=== PATIENT | female | born 1970 | race Caucasian/White ===

== ENCOUNTER 2016-05-30 12:28 | Observation (INO) | payer MEDICARE, OTHER ==
[2016-05-30] MEDS ORDERED: Sodium Chloride 0.9% 1000 ML 1,000 ML ONE (13:14)
[2016-05-30] MEDS ORDERED: Sodium Chloride 0.9% 1000 ML 1,000 ML IV SCH (13:15)
[2016-05-30 13:33] LABS: BASOPHIL % 0.3 % (0.0-0.4); Eosinophil % 2.8 % (0.00-5.0); Granulocytes % 49.7 % (36.0-66.0); Lymphocytes % 40.5 % (24.0-44.0); Mean Cell Volume 88.8 fl (78-100); Mean Platelet Volume 10.3 fl (6-9.5); Monocytes % 6.7 % (0.0-12.0); Platelet Count 298 K/mm3 (150-450); Red Cell Distribution Width 14.5 % (11.5-14.0); White Blood Count 11.8 K/mm3 (4.0-10.5)
[2016-05-30 13:53] LABS: ANION GAP 14.8 MEQ/L (5-15); BLOOD UREA NITROGEN 10 mg/dL (9-20); CHLORIDE 112 mEq/L (98-107); Carbon Dioxide 22.4 mEq/L (21-32); Glucose 134 MG/DL (70-110); SODIUM 147 mEq/L (136-145)
[2016-05-30 13:55] LABS: Potassium 2.1 mEq/L (3.5-5.1)
[2016-05-30] MEDS ORDERED: POTASSIUM CHLORIDE 20 mEq IN WATER 100ML 100 ML IV ONE ×3 (13:55→22:18)
--- NOTE | 2016-05-30 14:06 | ERPHSYRPT ---
- History of Present Illness Time Seen by Provider: 05/30/16 12:50 Source: patient Exam Limitations: clinical condition Patient Subjective Stated Complaint: "[facility] because my potassium is 2.6" Triage Nursing Assessment: aox3, breathign easy unlabored, skin pink warm dry, steady gait Physician History: PATIENT WITH A HISTORY OF HYPERTENSION, REFERRED TO EMERGENCY FOR EVALUATION OF LOW POTASSIUM FROM CLINIC. PATIENT COMPLAINS OF LEFT NUMBNESS ON OCCASION, DENIES EMESIS OR DIARRHEA. Timing/Duration: yesterday Modifying Factors: Improves With: other (DENIES COMPLAINS OTHER THAN NUMBNESS) Associated Symptoms: weakness Allergies/Adverse Reactions: venom-honey bee [bee venom (honey bee)] Allergy (Severe, Verified 10/10/15 13:01 ) Difficulty Breathing Iodinated Contrast Media - Oral and [Iodinated Contrast Media - IV Dye] Allergy (Intermediate, Verified 10/10/15 10:36) Itching cocoa butter Allergy (Verified 10/10/15 13:01) Hives codeine [Codeine] Allergy (Verified 12/14/11 23:14) iodine Allergy (Verified 12/14/11 23:14) sumatriptan [From Imitrex] Allergy (Verified 12/14/11 23:14) sumatriptan succinate [From Imitrex] Allergy (Verified 12/14/11 23:14) hydrochlorothiazide Adverse Reaction (Verified 10/10/15 13:01) tramadol Adverse Reaction (Verified 10/10/15 13:01) Vomiting Home Medications: Cyclobenzaprine HCl 10 mg [Cyclobenzaprine 10 MG] 10 mg PO HSPRN PRN 10/09 [History] Loratadine 10 mg [Claritin 10 mg] 10 mg PO DAILY 10/10/15 [History] Metoprolol Succinate 25 mg Xl* [Toprol-Xl 25MG Tablets] 25 mg PO BID [History] Naproxen [Naprosyn] 500 mg PO BID PRN 10/10/15 [History] Oxybutynin Chloride [Oxybutynin Chloride ER] 10 mg PO DAILY 10/10/15 [History] Simvastatin 0.5 tab PO HS 10/10/15 [History] Topiramate 100 mg [Topamax 100 MG] 50 mg PO BID 10/10/15 [History] Famotidine [Pepcid] 40 mg PO DAILY 05/30/16 [History] Potassium Chloride [Potassium Chloride 20MEQ/15ML] 40 meq PO DAILY 05/30/16 [ History] Pregabalin 25 mg [Lyrica 25 MG] 25 mg PO BID 05/30/16 [History] Hx Tetanus, Diphtheria Vaccination/Date Given: Yes Hx Influenza Vaccination/Date Given: No Hx Pneumococcal Vaccination/Date Given: No - Review of Systems Constitutional: Weakness, No Fever, No Chills Eyes: No Symptoms Ears, Nose, & Throat: No Symptoms Respiratory: No Symptoms, No Cough, No Dyspnea Cardiac: No Symptoms, No Chest Pain, No Edema, No Syncope Abdominal/Gastrointestinal: No Symptoms, No Abdominal Pain, No Nausea, No Vomiting, No Diarrhea Genitourinary Symptoms: No Symptoms, No Dysuria Musculoskeletal: No Symptoms, No Back Pain, No Neck Pain Skin: No Symptoms, No Rash Neurological: Parasthesia (IN LEGS), No Dizziness, No Focal Weakness, No Sensory Changes Psychological: No Symptoms Endocrine: No Symptoms Hematologic/Lymphatic: No Symptoms All Other Systems: Reviewed and Negative - Past Medical History Pertinent Past Medical History: Yes Neurological History: Migraines ENT History: No Pertinent History Cardiac History: Hypertension Respiratory History: No Pertinent History Endocrine Medical History: No Pertinent History Musculoskeletal History: No Pertinent History GI Medical History: No Pertinent History History: No Pertinent History Psycho-Social History: Anxiety, Depression Female Reproductive Disorders: No Pertinent History - Past Surgical History Past Surgical History: Yes Neuro Surgical History: No Pertinent History Cardiac: No Pertinent History Respiratory: No Pertinent History Gastrointestinal: Appendectomy Genitourinary: No Pertinent History Musculoskeletal: No Pertinent History Female Surgical History: Hysterectomy - Social History Smoking Status: Current every day smoker How long have you smoked: 30 YEARS Exposure to second hand smoke: Yes Drug Use: none Patient Lives Alone: No - Female History Hx Now: No - Nursing Vital Signs Nursing Vital Signs: Initial Vital Signs Temperature 98.0 F Temperature Source Oral Pulse Rate 73 Respiratory Rate 22 Blood Pressure [Right Arm] 156/102 Pain Intensity 4 - Physical Exam General Appearance: no apparent distress, alert Eye Exam: PERRL/EOMI, eyes nml inspection Ears, Nose, Throat Exam: normal ENT inspection, TMs normal, pharynx normal, moist mucous membranes Neck Exam: normal inspection, non-tender, supple, full range of motion Respiratory Exam: normal breath sounds, lungs clear, No respiratory distress Cardiovascular Exam: regular rate/rhythm, normal heart sounds, normal peripheral pulses Gastrointestinal/Abdomen Exam: soft, normal bowel sounds, No tenderness, No mass Back Exam: normal inspection, normal range of motion, No CVA tenderness, No vertebral tenderness Extremity Exam: normal inspection, normal range of motion, pelvis stable Neurologic Exam: alert, oriented x 3, cooperative, normal mood/affect, nml cerebellar function, nml station & gait, sensation nml, No motor deficits Skin Exam: normal color, warm, dry, No rash Lymphatic Exam: No adenopathy SpO2 Interpretation: normal SpO2: 97 Oxygen Delivery: Room Air - Course EKG Interpreted by Me: RATE, Sinus Rhythm, NORMAL AXIS, Other (RATE 73 ANTERIOR LATERAL FLAT T-WAVES) Ordered Tests: Active Orders 24 hr Category Date Time Status EKG-ER Only STAT Care 05/30/16 14:07 Active BMP Stat Lab 05/30/16 13:24 Completed CBC W DIFF Stat Lab 05/30/16 13:24 Completed MAGNESIUM Stat Lab 05/30/16 13:24 Completed Transfer Order Routine Transfer 05/30/16 14:31 Ordered Medication Summary Generic Name Dose Route Start Last Admin Trade Name Freq PRN Reason Stop Dose Admin Sodium Chloride 1,000 mls @ 50 mls/hr 05/30/16 13:15 05/30/16 13:14 Sodium Chloride 0.9% 1000 Ml IV 06/29/16 13:14 50 mls/hr .Q20H DAWOOD Administration Potassium Chloride 100 mls @ 50 mls/hr 05/30/16 13:55 05/30/16 14:10 Potassium Chloride 20 Meq In Water 100ml IV 05/30/16 15:54 50 mls/hr STAT ONE Administration Potassium Chloride 40 meq 05/31/16 14:17 05/30/16 14:25 Potassium Chl 40 Meq/30 Ml Oral Solution PO 05/31/16 14:18 40 meq STAT ONE Administration Discontinued Medications Generic Name Dose Route Start Last Admin Trade Name Freq PRN Reason Stop Dose Admin Sodium Chloride Confirm 05/30/16 13:14 Sodium Chloride 0.9% 1000 Ml Administered 05/30/16 13:15 Dose 1,000 mls @ ud .ROUTE .STK-MED ONE Potassium Chloride Confirm 05/30/16 14:07 Potassium Chloride 20 Meq In Water 100ml Administered 05/30/16 14:08 Dose 100 mls @ ud IV .STK-MED ONE Potassium Chloride 40 meq 05/31/16 10:00 Potassium Chl 40 Meq/30 Ml Oral Solution PO 06/30/16 09:59 DAILY DAWOOD Potassium Chloride Confirm 05/30/16 14:07 Potassium Chl 40 Meq/30 Ml Oral Solution Administered 05/30/16 14:08 Dose 40 meq .ROUTE .STK-MED ONE Lab/Rad Data: Laboratory Result Diagrams 05/30/16 13:24 05/30/16 13:24 Laboratory Results 05/30/16 05/30/16 05/30/16 Range/Units 13:24 13:24 13:24 WBC 11.8 H (4.0-10.5) K/mm3 RBC 4.90 (4.1-5.4) M/mm3 Hgb 14.7 (12.0-16.0) gm/dl Hct 43.5 (35-47) % MCV 88.8 (78-100) fl MCH 30.0 (26-32) pg MCHC 33.8 (32-36) g/dl RDW 14.5 H (11.5-14.0) % Plt Count 298 (150-450) K/mm3 MPV 10.3 H (6-9.5) fl Gran % 49.7 (36.0-66.0) % Lymphocytes % 40.5 (24.0-44.0) % Monocytes % 6.7 (0.0-12.0) % Eosinophils % 2.8 (0.00-5.0) % Basophils % 0.3 (0.0-0.4) % Basophils # 0.03 (0-0.4) Sodium 147 H (136-145) mEq/L Potassium 2.1 L* (3.5-5.1) mEq/L Chloride 112 H (98-107) mEq/L Carbon Dioxide 22.4 (21-32) mEq/L Anion Gap 14.8 (5-15) MEQ/L BUN 10 (9-20) mg/dL Creatinine 0.86 (0.55-1.30) mg/dl Estimated GFR > 60 ML/MIN Glucose 134 H (70-110) MG/DL Calcium 8.5 (8.5-10.1) mg/dL Magnesium 2.0 (1.8-2.4) mg/dL - Progress Discussed with : Femi Will see patient in: hospital (full admit) (DISCUSSED WITH DR RAMSEY AT 1430 FOR ADMISSION) - Departure Time of Disposition: 14:35 Departure Disposition: In-patient Admission Clinical Impression: HYPOKALEMIA Condition: Stable Critical Care Time: No Referrals: ROBERTO BAKER MD [Primary Care Provider] -
[2016-05-30] MEDS ORDERED: POTASSIUM CHL 40 MEQ/30 ML ORAL SOLUTION ONE (14:07)
[2016-05-30] MEDS ORDERED: Zofran 4 MG/2 ML VIAL IV PRN (15:26)
[2016-05-30] MEDS ORDERED: TYLENOL 325 MG PO PRN (15:26)
--- NOTE | 2016-05-30 17:35 | PCM.HP ---
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 she was sent to ER due to low potassium from [facility], she denies chest pain, palpitations or paresthesias. She has not had any vomiting or diarrhea etc. - Review of Systems Constitutional: No Symptoms Eyes: No Symptoms Respiratory: No Cough, No Short Of Breath Cardiac: No Chest Pain, No Edema, No Syncope Abdominal/Gastrointestinal: No Abdominal Pain, No Nausea, No Vomiting, No Diarrhea Neurological: No Dizziness, No Focal Weakness, No Sensory Changes Medications & Allergies Home Medications: Home Medication List Cyclobenzaprine HCl 10 mg [Cyclobenzaprine 10 MG] 10 mg PO HSPRN PRN 10/09 [History Confirmed 05/30/16] Loratadine 10 mg [Claritin 10 mg] 10 mg PO DAILY 10/10/15 [History Confirmed 05/30/16] Metoprolol Succinate 25 mg Xl* [Toprol-Xl 25MG Tablets] 25 mg PO BID [History Confirmed 05/30/16] Naproxen [Naprosyn] 500 mg PO BID PRN 10/10/15 [History Confirmed 05/30/16] Oxybutynin Chloride [Oxybutynin Chloride ER] 10 mg PO DAILY 10/10/15 [History Confirmed 05/30/16] Simvastatin 0.5 tab PO HS 10/10/15 [History Confirmed 05/30/16] Topiramate 100 mg [Topamax 100 MG] 50 mg PO DAILY 10/10/15 [History Confirmed 05/30/16] Amiloride HCl [Midamor] 5 mg PO BID #60 tablet 10/12/15 [Rx Confirmed 05/30/16] Famotidine [Pepcid] 40 mg PO DAILY 05/30/16 [History Confirmed 05/30/16] Potassium Chloride [Potassium Chloride 20MEQ/15ML] 40 meq PO DAILY 05/30/16 [ History Confirmed 05/30/16] Pregabalin 25 mg [Lyrica 25 MG] 25 mg PO BID 05/30/16 [History Confirmed 05/30/16] Topiramate 100 mg [Topamax 100 MG] 100 mg PO HS 05/30/16 [History Confirmed 05/30/16] Allergies/Adverse Reactions: Allergies Allergy/AdvReac Type Severity Reaction Status Date / Time venom-honey bee Allergy Severe Difficulty Verified 10/10/15 13:01 [bee venom (honey bee)] Breathing Iodinated Contrast Media - Allergy Intermediate Itching Verified 10/10/15 10:36 Oral and [Iodinated Contrast Media - IV Dye] cocoa butter Allergy Hives Verified 10/10/15 13:01 iodine Allergy Difficulty Verified 05/30/16 15:34 Breathing sumatriptan [From Imitrex] Allergy Difficulty Verified 05/30/16 15:34 Breathing sumatriptan succinate Allergy Difficulty Verified 05/30/16 15:34 [From Imitrex] Breathing codeine [Codeine] AdvReac Vomiting Verified 05/30/16 15:34 hydrochlorothiazide AdvReac Blisters Verified 05/30/16 15:34 tramadol AdvReac Vomiting Verified 10/10/15 13:01 - Past Medical History Past Medical History: Yes Neurological History: Migraines ENT History: No Pertinent History Cardiac History: Hypertension Respiratory History: No Pertinent History Endocrine Medical History: No Pertinent History Musculoskelatal History: No Pertinent History GI Medical History: No Pertinent History History: No Pertinent History Pyscho-Social History: Anxiety, Depression Reproductive Disorders: No Pertinent History - Female History Are you now?: No - Past Surgical History Past Surgical History: Yes Neuro Surgical History: No Pertinent History Cardiac History: No Pertinent History Respiratory Surgery: No Pertinent History GI Surgical History: Appendectomy Genitourinary Surgical Hx: No Pertinent History Musculskeletal Surgical Hx: No Pertinent History Female Surgical History: Hysterectomy - Social History Smoking Status: Current every day smoker How long have you smoked: 30 years Exposure to second hand smoke: Yes Alcohol: None, Rarely Drug Use: none - Physical Exam Vital Signs: Vital Signs - 24 hr Temp Pulse Resp BP Pulse Ox 05/30/16 15:35 97.7 F 71 19 183/103 98 05/30/16 15:01 72 18 179/115 98 05/30/16 14:39 97 05/30/16 13:53 73 22 156/102 97 05/30/16 13:24 71 22 164/88 97 05/30/16 12:37 98.0 F 82 16 170/104 98 General Appearance: no apparent distress, alert Neurologic Exam: alert, oriented x 3, cooperative, normal mood/affect, nml cerebellar function, nml station & gait, sensation nml, No motor deficits Eye Exam: PERRL/EOMI, eyes nml inspection Respiratory Exam: normal breath sounds, lungs clear, No respiratory distress Cardiovascular Exam: regular rate/rhythm, normal heart sounds, normal peripheral pulses Gastrointestinal/Abdomen Exam: soft, normal bowel sounds, No tenderness, No mass Extremity Exam: normal inspection Skin Exam: normal color, warm, dry, No rash Assessment/Plan (1) Hypokalemia Current Visit: Yes Status: Acute Assessment & Plan: will replace, continue amiloride Code(s): E87.6 - HYPOKALEMIA (2) Pee's syndrome Current Visit: Yes Status: Acute Code(s): I15.2 - HYPERTENSION SECONDARY TO ENDOCRINE DISORDERS; E26.89 - OTHER HYPERALDOSTERONISM
[2016-05-30] MEDS: POTASSIUM CHLORIDE 20 mEq IN WATER 100ML 100 ML IV SCH ×2 (17:38→22:22)
[2016-05-30] MEDS ORDERED: Cyclobenzaprine 10 MG PO PRN (18:52)
[2016-05-30] MEDS: Lyrica 25 MG PO SCH (21:53)
[2016-05-30] MEDS: Toprol-Xl 25MG Tablets PO SCH (21:54)
[2016-05-30] MEDS ORDERED: Naprosyn 500 MG PO SCH (22:00)
[2016-05-30] MEDS ORDERED: Topamax 100 MG PO SCH (22:00)
[2016-05-30] MEDS: MIDAMOR PO SCH (22:52)
[2016-05-31] MEDS: POTASSIUM CHLORIDE 20 mEq IN WATER 100ML 100 ML IV SCH ×2 (04:44→08:22)
[2016-05-31] MEDS ORDERED: Naprosyn 500 MG PO PRN (08:20)
[2016-05-31] MEDS: MIDAMOR PO SCH (08:26)
[2016-05-31] MEDS: Lyrica 25 MG PO SCH (08:26)
[2016-05-31] MEDS: Toprol-Xl 25MG Tablets PO SCH (08:26)
[2016-05-31] MEDS: Sodium Chloride 0.9% 1000 ML 1,000 ML IV SCH ×2 (09:05→09:06)
[2016-05-31] MEDS ORDERED: NON-FORMULARY ITEM (Oxybutynin Chloride [Oxybutynin Chloride Er] 10 MG) PO SCH (10:00)
[2016-05-31] MEDS ORDERED: Ditropan XL 5 MG PO SCH (10:00)
[2016-05-31] MEDS ORDERED: Topamax 100 MG PO SCH (10:00)
[2016-05-31] MEDS ORDERED: POTASSIUM CHL 40 MEQ/30 ML ORAL SOLUTION PO SCH (10:00)
[2016-05-31] MEDS ORDERED: Pepcid 20 MG PO SCH (10:00)
[2016-05-31] MEDS ORDERED: K-LYTE 25 MEQ PO ONE (11:30)
--- NOTE | 2016-05-31 11:33 | PCM.DS ---
Discharge Summary Date of Admission: 05/30/16 15:20 Admitting Physician: RAMON RAMSEY Primary Care Provider: ROBERTO BAKER Allergies Allergies venom-honey bee [bee venom (honey bee)] Allergy (Severe, Verified 10/10/15 13:01 ) Difficulty Breathing Iodinated Contrast Media - Oral and [Iodinated Contrast Media - IV Dye] Allergy (Intermediate, Verified 10/10/15 10:36) Itching cocoa butter Allergy (Verified 10/10/15 13:01) Hives iodine Allergy (Verified 05/30/16 15:34) Difficulty Breathing sumatriptan [From Imitrex] Allergy (Verified 05/30/16 15:34) Difficulty Breathing sumatriptan succinate [From Imitrex] Allergy (Verified 05/30/16 15:34) Difficulty Breathing codeine [Codeine] Adverse Reaction (Verified 05/30/16 15:34) Vomiting hydrochlorothiazide Adverse Reaction (Verified 05/30/16 15:34) Blisters tramadol Adverse Reaction (Verified 10/10/15 13:01) Vomiting Hospital Summary - Hospital Course Hospital Course: [facility] with [facility]al[facility], hx of Pee syndrome ( pseudohypoaldosteronism) had her potassium decreased from 40meq to 20meq daily in [place] by her endo. overall doing well and feels fine. potassium has been replaced. - Vitals & Intake/Output Vital Signs: Vital Signs Temperature 97.6 F 05/31/16 07:33 Pulse Rate 86 05/31/16 07:33 Respiratory Rate 18 05/31/16 08:00 Blood Pressure 150/91 05/31/16 07:33 O2 Sat by Pulse Oximetry 96 05/31/16 07:33 Intake & Output: Intake & Output 05/28/16 05/29/16 05/30/16 05/31/16 11:59 11:59 11:59 11:59 Intake Total 1557 Balance 1557 Weight 92.986 kg - Lab Result Diagrams: 05/30/16 13:24 05/31/16 04:00 Lab Results-Last 24 Hrs: Lab Results-Last 24 Hours 05/31/16 Range/Units 04:00 Potassium 2.8 L* (3.5-5.1) mEq/L - Procedures and Test Procedures and Tests throughout Hospitalization: Therapy Orders & Screens 05/30/16 15:54 Smoking Cessation Education ONCE Comment: Diagnosis: hypokalemia Smoking Status: Current every day smoker How long have you smoked: 30 years Have you smoked in the past 12 months: Yes Approximately how many cigarettes per day: 1.5 packs Do you dip or chew tobacco: No Discharge Exam General Appearance: no apparent distress, alert Respiratory Exam: normal breath sounds, lungs clear, No respiratory distress Cardiovascular Exam: regular rate/rhythm, normal heart sounds Gastrointestinal/Abdomen Exam: soft, No tenderness, No mass Extremity Exam: normal inspection, normal range of motion Final Diagnosis/Problem List - Final Discharge Diagnosis/Problem (1) Hypokalemia Current Visit: Yes Status: Acute Assessment & Plan: replaced, want to be around 3.5 then will discharge and increase back to 40meq daily (2) Pee's syndrome Current Visit: Yes Status: Acute Assessment & Plan: f/u with endo - Discharge Disposition: Home, Self-Care Condition: Stable Prescriptions: No Action Oxybutynin Chloride [Oxybutynin Chloride ER] 10 mg PO DAILY Simvastatin 0.5 tab PO HS Loratadine 10 mg [Claritin 10 mg] 10 mg PO DAILY Metoprolol Succinate 25 mg Xl* [Toprol-Xl 25MG Tablets] 25 mg PO BID Naproxen [Naprosyn] 500 mg PO BID PRN PRN Reason: Pain Topiramate 100 mg [Topamax 100 MG] 50 mg PO DAILY Cyclobenzaprine HCl 10 mg [Cyclobenzaprine 10 MG] 10 mg PO HSPRN PRN PRN Reason: muscle pain Amiloride HCl [Midamor] 5 mg PO BID #60 tablet Potassium Chloride [Potassium Chloride 20MEQ/15ML] 40 meq PO DAILY Pregabalin 25 mg [Lyrica 25 MG] 25 mg PO BID Famotidine [Pepcid] 40 mg PO DAILY Topiramate 100 mg [Topamax 100 MG] 100 mg PO HS Follow up with: ROBERTO BAKER MD [Primary Care Provider] -
[2016-05-31 12:19] VITALS: BP 144/75; PULSE 76; O2SAT 73
[2016-05-31 13:45] LABS: ANION GAP 12.9 MEQ/L (5-15); BLOOD UREA NITROGEN 7 mg/dL (9-20); CHLORIDE 112 mEq/L (98-107); Carbon Dioxide 24.2 mEq/L (21-32); Glucose 87 MG/DL (70-110); Potassium 3.6 mEq/L (3.5-5.1); SODIUM 146 mEq/L (136-145)
[2016-05-31] MEDS ORDERED: POTASSIUM CHL 40 MEQ/30 ML ORAL SOLUTION PO ONE (14:17)
== END 2016-05-31 14:45 | disposition home or self-care (01) ==
LOC: ED 12:28 → MED SURG 15:20 → UNDOADMOB 15:20 → INTOOBSV 15:20 → MED SURG 15:20
PROVIDERS: ADMIT Family Medicine; ATTEND Family Medicine
DX: E87.6 Hypokalemia (principal); I15.2 Hypertension secondary to endocrine disorders; E26.89 Other hyperaldosteronism; F41.8 Other specified anxiety disorders; Z72.0 Tobacco use
CPT/HCPCS: 93268 ×2; 96365; 99285; 36000; 96360; 96367; 93005; 36415 ×2; 84132; 83735; 85025; 80048 ×2; A9270 ×9; G0378; J3480

== ENCOUNTER 2016-12-22 13:21 | Emergency (ER) | payer OTHER, BC, MEDICARE ==
[2016-12-22 13:35] VITALS: O2SAT 95
--- NOTE | 2016-12-22 14:25 | ERPHSYRPT ---
- History of Present Illness Time Seen by Provider: 12/22/16 14:13 Source: patient Exam Limitations: no limitations Patient Subjective Stated Complaint: PT HERE FOR SWELLING TO LIPS AND EYES AFTER TAKING 2 NEW MEDS YESTERDAY,NO DIFFICULTY BREATHING OR SWALLOWING Triage Nursing Assessment: PT WALKED IN ALERT, RESP EASY, SKIN W.D,PINK, IN NO DISTRESS, NO SWELLING TO LIPS. EYE PUFFY. Physician History: The patient is a 46-year-old female with her complaining of eyelid swelling and lip tingling just before arrival. 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 She took one Benadryl. Eyelid swelling has resolved. Her past medical history is significant for angioedema, migraines, hypertension, high cholesterol, and GERD. Timing/Duration: today, resolved prior to arrival Quality: other (swelling) Location: face Possible Causes: no cause identified Modifying Factors: Improves With: antihistamine Associated Symptoms: edema, No hives, No rash Allergies/Adverse Reactions: venom-honey bee [bee venom (honey bee)] Allergy (Severe, Verified 10/10/15 13:01 ) Difficulty Breathing Iodinated Contrast- Oral and IV Dye [Iodinated Contrast Media - IV Dye] Allergy (Intermediate, Verified 10/10/15 10:36) Itching cocoa butter Allergy (Verified 10/10/15 13:01) Hives iodine Allergy (Verified 05/30/16 15:34) Difficulty Breathing sumatriptan [From Imitrex] Allergy (Verified 05/30/16 15:34) Difficulty Breathing sumatriptan succinate [From Imitrex] Allergy (Verified 05/30/16 15:34) Difficulty Breathing codeine [Codeine] Adverse Reaction (Verified 05/30/16 15:34) Vomiting hydrochlorothiazide Adverse Reaction (Verified 05/30/16 15:34) Blisters tramadol Adverse Reaction (Verified 10/10/15 13:01) Vomiting Home Medications: Cyclobenzaprine HCl 10 mg [Cyclobenzaprine 10 MG] 10 mg PO HSPRN PRN 10/09 [History] Loratadine 10 mg [Claritin 10 mg] 10 mg PO DAILY 10/10/15 [History] Metoprolol Succinate 25 mg Xl* [Toprol-Xl 25MG Tablets] 25 mg PO BID [History] Naproxen [Naprosyn] 500 mg PO BID PRN 10/10/15 [History] Oxybutynin Chloride [Oxybutynin Chloride ER] 10 mg PO DAILY 10/10/15 [History] Simvastatin 0.5 tab PO HS 10/10/15 [History] Topiramate 100 mg [Topamax 100 MG] 50 mg PO DAILY 10/10/15 [History] Famotidine [Pepcid] 40 mg PO DAILY 05/30/16 [History] Potassium Chloride [Potassium Chloride 20MEQ/15ML] 40 meq PO DAILY 05/30/16 [ History] Pregabalin 25 mg [Lyrica 25 MG] 25 mg PO BID 05/30/16 [History] Topiramate 100 mg [Topamax 100 MG] 100 mg PO HS 05/30/16 [History] Hx Tetanus, Diphtheria Vaccination/Date Given: Yes Hx Influenza Vaccination/Date Given: No Hx Pneumococcal Vaccination/Date Given: No Immunizations Up to Date: Yes - Review of Systems Constitutional: No Fever, No Chills Eyes: No Symptoms Ears, Nose, & Throat: No Symptoms Respiratory: No Cough, No Dyspnea Cardiac: No Chest Pain, No Edema, No Syncope Abdominal/Gastrointestinal: No Abdominal Pain, No Nausea, No Vomiting, No Diarrhea Genitourinary Symptoms: No Symptoms Musculoskeletal: No Back Pain, No Neck Pain Skin: Other (swelling) Neurological: No Dizziness, No Focal Weakness, No Sensory Changes Psychological: No Symptoms Endocrine: No Symptoms Hematologic/Lymphatic: No Symptoms Immunological/Allergic: No Symptoms All Other Systems: Reviewed and Negative - Past Medical History Pertinent Past Medical History: Yes Neurological History: Migraines ENT History: No Pertinent History Cardiac History: Hypertension Respiratory History: No Pertinent History Endocrine Medical History: No Pertinent History Musculoskeletal History: No Pertinent History GI Medical History: No Pertinent History History: No Pertinent History Psycho-Social History: Anxiety, Depression Female Reproductive Disorders: No Pertinent History - Past Surgical History Past Surgical History: Yes Neuro Surgical History: No Pertinent History Cardiac: No Pertinent History Respiratory: No Pertinent History Gastrointestinal: Appendectomy Genitourinary: No Pertinent History Musculoskeletal: No Pertinent History Female Surgical History: Hysterectomy, Section - Social History Smoking Status: Current every day smoker How long have you smoked: 30 years Exposure to second hand smoke: Yes Drug Use: none Patient Lives Alone: No - Female History Hx Last Menstrual Period: HYSTER Hx Now: No - Nursing Vital Signs Nursing Vital Signs: Initial Vital Signs Temperature 98.5 F 12/22/16 13:29 Pulse Rate 80 12/22/16 13:29 Respiratory Rate 18 12/22/16 13:29 Blood Pressure 142/98 12/22/16 13:29 O2 Sat by Pulse Oximetry 95 12/22/16 13:29 Pain Scale Pain Intensity 0 - Physical Exam General Appearance: no apparent distress, alert Eye Exam: PERRL/EOMI, eyes nml inspection Ears, Nose, Throat Exam: normal ENT inspection, pharynx normal, moist mucous membranes Neck Exam: normal inspection, non-tender, supple, full range of motion Respiratory Exam: normal breath sounds, lungs clear, No respiratory distress Cardiovascular Exam: regular rate/rhythm, normal heart sounds Gastrointestinal/Abdomen Exam: soft, mass, No tenderness Pelvic Exam: not done Rectal Exam: not done Back Exam: normal inspection, normal range of motion, No CVA tenderness, No vertebral tenderness Extremity Exam: normal inspection, normal range of motion Neurologic Exam: alert, oriented x 3, cooperative, normal mood/affect, sensation nml, No motor deficits Skin Exam: normal color, warm, dry SpO2 Interpretation: normal SpO2: 95 Oxygen Delivery: Room Air - Progress Progress: improved (resolved) - Departure Time of Disposition: 14:32 Departure Disposition: Home Clinical Impression: Allergic reaction Condition: Stable Critical Care Time: No Referrals: RAMON RAMSEY MD [Primary Care Provider] - Additional Instructions: You had an allergic reaction. You were given Benadryl 50 mg IM in the ER. Take prednisone 60 mg daily for 5 days. If needed, take Benadryl 25-50 mg every 2-4 hours. Follow-up as needed. Prescriptions: Prednisone 10 mg [Deltasone 10 mg] 60 mg PO DAILY #30 tablet
[2016-12-22] MEDS ORDERED: BENADRYL 50 MG/ML IM ONE (14:32)
[2016-12-22] MEDS ORDERED: BENADRYL 50 MG/ML ONE (14:36)
[2016-12-22 14:59] VITALS: BP 148/92; PULSE 73
== END 2016-12-22 15:00 | disposition home or self-care (01) ==
LOC: ED 13:21
DX: T78.40XA Allergy, unspecified, initial encounter (principal); T78.3XXA Angioneurotic edema, initial encounter; I10 Essential (primary) hypertension; E78.00 Pure hypercholesterolemia, unspecified; Z79.899 Other long term (current) drug therapy
CPT/HCPCS: 96372; 99284; J1200

== ENCOUNTER 2018-06-29 10:48 | Day surgery (SDC) | payer BC, MEDICARE ==
[~2018-06-29 10:48] MED LIST: ACETAZOLAMIDE 250 MG TABLET PO ONE; Ak-Dilate OPHTHALMIC*** 1.065 ML, Cyclogyl 1% OPHTH SOL 5 ML 1.065 ML, GATIFLOXACIN 0.5... OP ONE; BETADINE 5% OPHTHALMIC 30 ML OP ONE; BSS 500 ML, Fortaz/Tazicef 1 GM** 0.2 G IO ONE; Epinephrine Preservative Free 1 MG/ML INTRAOP ONE; LIDOCAINE HCL 1% AMPUL 5 ML IJ ONE; Lactated Ringers 1,000 ML IV SCH; TETRACAINE 0.5% STERI-UNIT SOL OP ONE; Zofran 4 MG/2 ML VIAL IV PRN
[2018-06-29] MEDS ORDERED: DIPRIVAN 200 MG/20 ML IV ONE (10:49)
[2018-06-29] MEDS ORDERED: Lactated Ringers 1,000 ML IV ONE (11:17)
[2018-06-29] MEDS: TETRACAINE 0.5% STERI-UNIT SOL OP ONE ×2 (11:17→11:42)
--- NOTE | 2018-06-29 13:06 | OP ---
DATE/TIME OF OPERATION: 06/29/2018 1147 TIME DICTATED: 1235 PREOPERATIVE DIAGNOSIS: Senile cataract of right eye. POSTOPERATIVE DIAGNOSIS: Senile cataract of right eye. SURGEON: Lizzette De Santiago MD CANOPY INSPECTOR: None. OPERATION: Cataract extraction of right eye with an intraocular lens implant. STANDARD __X__ COMPLEX ANESTHESIA: MAC. ___X___ Monitored anesthesia care in combination with topical and intra-cameral anesthesia (because of the established specific risk of reflux, arrhythmias, or an anxiety attack associated with ocular manipulation as well as difficulty of the customer success manager to manage such potentially catastrophic events while simultaneously attempting to complete the surgical procedure, it was deemed necessary for the patient's safety to have an anesthesiologist or a nurse certified nurses' aide present during the procedure whenever possible. The anesthesiologist or the nurse certified nurses' aide was utilized to monitor and regulate the intravenous sedation of the patient, so the patient was cooperative, relaxed, and comfortable). Topical anesthesia using Tetracaine eye drops together with intra cameral anesthesia using Lidocaine 1% MPF. The nurse was utilized to monitor the patient. ANESTHESIA PROVIDER: Farhat Echols CRNA. COMPLICATIONS: None. BLOOD LOSS: None. INDICATIONS: The patient is undergoing cataract surgery in the hopes of eliminating the visual complaints and difficulty. PROCEDURE: After arriving at the facility's outpatient surgery area, an IV was started; the patient was given 5 mg of p.o. Versed. (If an anesthesia provider was not monitoring the patient) The patient was then given topical anesthetic Tetracaine eye drops. A cotton pellet was soaked into a solution of a combination of Zymaxid 0.5%, Anival-Synephrine 2.5% and Ocufen (other drops might have been substituted referenced in the patient's record). The pellet was inserted by the RN into the lower conjunctival cul-de-sac with a sterile forceps and left for 20 minutes. The pellet was then removed by the RN with a sterile forceps before taking the patient to the operating room. The preoperative area nurse identified the patient and marked the correct eye to be operated on. I identified the correct eye to be operated on and marked it appropriately in the outpatient surgery area. The patient was then taken into the operating room. Tetracaine eye drops were installed again in the correct eye. The eyelids and the lashes and the lid margins were scrubbed with Betadine solution. One drop of the diluted Betadine solution was placed in the conjunctival cul-de-sac for 45 seconds and then was irrigated. A drop of Tetracaine Gel was placed in the conjunctival cul-de-sac. The patient's forehead was taped to secure it during the procedure. The patient was monitored. The patient was then draped in the usual way for this procedure. An eye speculum was used to separate the eyelids. The eye was then fixated and a temporal 2.5 mm incision was made in the clear cornea temporally at the limbus. Through the incision, 0.25 cc of 1% non-preserved lidocaine was injected into the anterior chamber for intracameral anesthesia. The anterior chamber was then filled with viscoelastic. The pupil was small. I felt that it would be safer to mechanically dilate the pupil. A Malyugin ring was used at this point which dilated the pupil. That was removed at the end of the procedure prior to aspiration of the viscoelastic from the anterior chamber and posterior to the intraocular lens implant. The cataract had a great amount of cortical changes. That rendered seeing the anterior capsule difficult for a safe performance of an anterior capsulotomy. I injected an air bubble into the anterior chamber. I then injected 1 ML of vision blue solution into the anterior chamber. The vision blue solution was irrigated from the anterior chamber after 30 seconds. The anterior capsule was stained which facilitated performing the anterior capsulotomy safely. After that was completed, a cystotome was introduced into the anterior chamber and a round anterior capsulotomy was performed. The capsule was removed by a forceps. Hydrodissection was next carried utilizing a 25-gauge cannula and balanced salt solution to delineate the cortical material from the capsule and the nucleus from the cortical material. The nucleus was rotated freely into the capsular bag with no difficulty. The phaco tip of the [employer] [facility] Phacoemulsifier was introduced into the anterior chamber and two grooves were made into the nucleus 90 degrees apart. Using two spatulas resulted into the nucleus being fractured into four quadrants. The phaco tip was then used to remove each quadrant of the nucleus. Viscoelastic was used during this process to protect the corneal endothelium. Once the entire nucleus was removed, the phaco tip then was removed and the irrigation tip was introduced into the eye and the cortex was removed. The posterior capsule was polished. It was noticed that there was a tear into the posterior capsule with few vitreous strands into the pupil plan. An anterior vitrectomy was performed. A 22.50 diopter, [id number], posterior chamber lens implant, was inspected and found to be grossly normal. The implant was inserted into the implant injector cartridge; Viscoelastic again was introduced into the anterior chamber, which filled the capsular bag. The implant injector's cartridge tip was placed at the limbal wound and the posterior chamber implant was released into the capsular bag and rotated appropriately. The implant was found to be into the capsular bag and it was centered. __X__ 0.2 ml of Tri-Moxi was introduced via 27 gauge cannula into the vitreous cavity through the ciliary processes. Viscoelastic was aspirated from the anterior chamber and posterior to the intraocular lens implant from the capsular bag using the irrigating tip. The anterior chamber was irrigated and filled with 5 cc antibiotic solution (500 cc of BSS plus 2 ml of Fortaz 100 mg/ml) ( if patient was not allergic to the medication). The lips of the corneal incision were hydrated using BSS solution. The anterior chamber was checked and found to be water tight. One drop each of antibiotic, steroid and NSAID drops (refer to chart for drops used) were placed in the conjunctival cul-de-sac of the operated eye. Patient tolerated the procedure quite well and left the operating room in satisfactory condition. DISCHARGE SUMMARY: The patient was released in stable condition. The patient and those with the patient were given an instruction sheet as of how to care for the eye after surgery as well as counseling on any abnormal laboratory studies by the postoperative RN. The patient was also given an appointment card for follow-up in the office and is to call immediately for any difficulties including but not limited to pain in the eye, decreased vision, discharge from the eye, headache and or fever. DISCHARGE DIAGNOSIS: Pseudophakia of right eye.
[2018-06-29 13:17] VITALS: BP 135/83; PULSE 85; O2SAT 98
== END 2018-06-29 13:10 | disposition home or self-care (01) ==
LOC: SDC 10:48
PROVIDERS: ATTEND Ophthalmology
DX: H25.811 Combined forms of age-related cataract, right eye (principal); J44.9 Chronic obstructive pulmonary disease, unspecified; G47.30 Sleep apnea, unspecified; Z79.899 Other long term (current) drug therapy
CPT/HCPCS: C1780; J0171; J2704; A9270-GY

== ENCOUNTER 2019-02-12 09:32 | Emergency (ER) | payer BC, MEDICARE ==
--- NOTE | 2019-02-12 09:53 | ERPHSYRPT ---
- History of Present Illness Time Seen by Provider: 02/12/19 09:50 Source: patient, family Exam Limitations: no limitations Patient Subjective Stated Complaint: Pt states "I have been dizzy since 0130 this morning. The room is spinning. I am nauseaous and have been vomiting." Triage Nursing Assessment: Pt presented alert and oriented X 3, skin pwd. Pt eyes tightly closed, moaning. PT holding arms out and rubbing her right ear. PT speech is clear, no weakness noted. Physician History: 48 y/o white female presents with sudden onset of dizziness. pt states she got up a 0130 and was spinning. room was still. pt states she has had dizziness and vomiting ever since. pt denies ever having sx before. denies head injury. denies new medications. pt denies cp. she denies flu like sx. she does state right ear feels as though it has to "pop" Timing/Duration: today, hour(s) (8.5) Severity: moderate Associated Symptoms: nausea, vomiting, No abdominal pain, No shortness of breath , No chest pain, No headaches, No syncope Allergies/Adverse Reactions: venom-honey bee [bee venom (honey bee)] Allergy (Severe, Verified 06/29/18 11:15 ) Difficulty Breathing Iodinated Contrast Media [Iodinated Contrast Media - IV Dye] Allergy ( Intermediate, Verified 06/29/18 11:15) Itching iodine Allergy (Verified 06/29/18 11:15) Difficulty Breathing sumatriptan [From Imitrex] Allergy (Verified 06/29/18 11:15) Difficulty Breathing sumatriptan succinate [From Imitrex] Allergy (Verified 06/29/18 11:15) Difficulty Breathing cocoa butter Adverse Reaction (Intermediate, Verified 06/29/18 11:15) Rash codeine [Codeine] Adverse Reaction (Verified 06/29/18 11:15) Vomiting hydrochlorothiazide Adverse Reaction (Verified 06/29/18 11:15) Blisters tramadol Adverse Reaction (Verified 06/29/18 11:15) Vomiting Home Medications: Cyclobenzaprine HCl 10 mg [Cyclobenzaprine 10 MG] 10 mg PO HSPRN PRN 10/09 [History] Loratadine 10 mg [Claritin 10 mg] 10 mg PO DAILY 10/10/15 [History] Naproxen [Naprosyn] 500 mg PO BID PRN 10/10/15 [History] Oxybutynin Chloride [Oxybutynin Chloride ER] 15 mg PO DAILY 10/10/15 [History] Simvastatin 40 mg PO HS 10/10/15 [History] Topiramate 100 mg [Topamax 100 MG] 50 mg PO DAILY 10/10/15 [History] Pregabalin 25 mg [Lyrica 25 MG] 25 mg PO BID 05/30/16 [History] Topiramate 100 mg [Topamax 100 MG] 100 mg PO HS 05/30/16 [History] Calcium 500 mg PO DAILY 05/17/18 [History] Escitalopram Oxalate 5 mg PO HS 05/17/18 [History] Hydroxyzine HCl 10 mg PO HS 05/17/18 [History] Vits W-Ca,Fe,FA(<1Mg) [] 1 tab PO DAILY 05/17/18 [History] Hx Tetanus, Diphtheria Vaccination/Date Given: No Hx Influenza Vaccination/Date Given: Yes Hx Pneumococcal Vaccination/Date Given: No Immunizations Up to Date: Yes - Review of Systems Constitutional: No Symptoms Eyes: No Symptoms Ears, Nose, & Throat: No Symptoms Respiratory: No Symptoms Cardiac: No Symptoms Abdominal/Gastrointestinal: Nausea, Vomiting Genitourinary Symptoms: No Symptoms Musculoskeletal: No Symptoms Skin: No Symptoms Neurological: Dizziness Psychological: No Symptoms Endocrine: No Symptoms Hematologic/Lymphatic: No Symptoms Immunological/Allergic: No Symptoms All Other Systems: Reviewed and Negative - Past Medical History Pertinent Past Medical History: Yes Neurological History: Migraines, Other ENT History: Cataracts Cardiac History: No Pertinent History Respiratory History: COPD, Sleep Apnea Endocrine Medical History: Other Musculoskeletal History: Degenerative Disk Disease GI Medical History: GERD History: No Pertinent History Psycho-Social History: Anxiety, Depression Female Reproductive Disorders: Uterine Cancer Other Medical History: Notes tingling into B hands, adrenal gland removed - Past Surgical History Past Surgical History: Yes Neuro Surgical History: No Pertinent History Cardiac: No Pertinent History Respiratory: No Pertinent History Gastrointestinal: Appendectomy Genitourinary: Other Musculoskeletal: Other Female Surgical History: Hysterectomy, Section, Tubal Ligation Other Surgical History: cervical fusion, adrenal gland removal - Social History Smoking Status: Current every day smoker How long have you smoked: years Exposure to second hand smoke: Yes Drug Use: none Patient Lives Alone: No - Female History Hx Last Menstrual Period: 2001 Hx Now: (hysterectomy) - Nursing Vital Signs Nursing Vital Signs: Initial Vital Signs Temperature 97.9 F 02/12/19 09:35 Pulse Rate 83 02/12/19 09:35 Respiratory Rate 20 02/12/19 09:35 Blood Pressure 122/88 02/12/19 09:35 O2 Sat by Pulse Oximetry 97 02/12/19 09:35 Pain Scale Pain Intensity 0 - Physical Exam General Appearance: mild distress, alert, anxiety, obese Eye Exam: PERRL/EOMI, eyes nml inspection Ears, Nose, Throat Exam: normal ENT inspection, moist mucous membranes Neck Exam: normal inspection, non-tender, supple, full range of motion Respiratory Exam: normal breath sounds, lungs clear, airway intact, No chest tenderness, No respiratory distress Cardiovascular Exam: regular rate/rhythm, normal heart sounds, normal peripheral pulses Gastrointestinal/Abdomen Exam: soft, normal bowel sounds, No tenderness Pelvic Exam: not done Rectal Exam: not done Back Exam: normal inspection, normal range of motion, No CVA tenderness, No vertebral tenderness Extremity Exam: normal inspection, normal range of motion, pelvis stable Neurologic Exam: alert, oriented x 3, cooperative, parcel wrapper II-XII nml as tested, normal mood/affect Skin Exam: normal color, warm, dry Lymphatic Exam: No adenopathy SpO2 Interpretation: normal SpO2: 97 O2 Delivery: Room Air - Course Nursing assessment & vital signs reviewed: Yes EKG Interpreted by Me: RATE (72), Sinus Rhythm, NORMAL AXIS, NORMAL INTERVALS, 1st degree AV Block (new ), NORMAL QRS, Other (no other changes when compared to ekg dated 05/30/16) Ordered Tests: Active Orders 24 hr Category Date Time Status Clean Catch Urine Specimen STAT Care 02/12/19 10:02 Active EKG-ER Only STAT Care 02/12/19 10:06 Active IV Insertion STAT Care 02/12/19 10:02 Active HEAD WITHOUT CONTRAST [CT] Stat Exams 02/12/19 10:04 Taken CBC W DIFF Stat Lab 02/12/19 10:25 Completed CMP Stat Lab 02/12/19 10:25 Completed CULTURE,URINE Stat Lab 02/12/19 10:04 Received UA W/RFX UR CULTURE Stat Lab 02/12/19 10:04 Completed Urine Triage Profile Stat Lab 02/12/19 10:04 Completed Medication Summary Discontinued Medications Generic Name Dose Route Start Last Admin Trade Name Иван PRN Reason Stop Dose Admin Sodium Chloride 1,000 mls @ 999 mls/hr 02/12/19 10:02 02/12/19 11:19 Sodium Chloride 0.9% 1000 Ml IV 02/12/19 11:02 Infused .Q1H1M STA Infusion Sodium Chloride Confirm 02/12/19 10:09 Sodium Chloride 0.9% 1000 Ml Administered 02/12/19 10:10 Dose 1,000 mls @ ud .ROUTE .STK-MED ONE Meclizine HCl 25 mg 02/12/19 11:26 02/12/19 11:50 Antivert 25 Mg PO 02/12/19 11:27 25 mg STAT ONE Administration Meclizine HCl Confirm 02/12/19 11:48 Antivert 25 Mg Administered 02/12/19 11:49 Dose 25 mg .ROUTE .STK-MED ONE Ondansetron HCl 4 mg 02/12/19 10:02 02/12/19 10:12 Zofran 4 Mg/2 Ml Vial IV 02/12/19 10:03 4 mg STAT ONE Administration Ondansetron HCl Confirm 02/12/19 10:09 Zofran 4 Mg/2 Ml Vial Administered 02/12/19 10:10 Dose 4 mg .ROUTE .STK-MED ONE Lab/Rad Data: Laboratory Result Diagrams 02/12/19 10:25 02/12/19 10:25 Laboratory Results 02/12/19 02/12/19 02/12/19 Range/Units 10:25 10:25 10:04 WBC 9.9 (4.0-10.5) K/mm3 RBC 4.69 (4.1-5.4) M/mm3 Hgb 14.2 (12.0-16.0) gm/dl Hct 43.8 (35-47) % MCV 93.4 (78-100) fl MCH 30.3 (26-32) pg MCHC 32.4 (32-36) g/dl RDW 13.3 (11.5-14.0) % Plt Count 243 (150-450) K/mm3 MPV 9.7 H (6-9.5) fl Gran % 68.6 H (36.0-66.0) % Eos # (Auto) 0.13 (0-0.5) Absolute Lymphs (auto) 2.40 (1.0-4.6) Absolute Monos (auto) 0.56 (0.0-1.3) Lymphocytes % 24.1 (24.0-44.0) % Monocytes % 5.6 (0.0-12.0) % Eosinophils % 1.3 (0.00-5.0) % Basophils % 0.4 (0.0-0.4) % Absolute Granulocytes 6.81 (1.4-6.9) Basophils # 0.04 (0-0.4) Sodium 143 (137-145) mmol/L Potassium 3.9 (3.5-5.1) mmol/L Chloride 108 H (98-107) mmol/L Carbon Dioxide 27 (22-30) mmol/L Anion Gap 12.0 (5-15) MEQ/L BUN 12 (7-17) mg/dL Creatinine 0.60 (0.52-1.04) mg/dL Estimated GFR > 60.0 ML/MIN Glucose 129 H (74-106) mg/dL Calcium 9.5 (8.4-10.2) mg/dL Total Bilirubin 0.40 (0.2-1.3) mg/dL AST 22 (14-36) U/L ALT 25 (0-35) U/L Alkaline Phosphatase 69 (38-126) U/L Serum Total Protein 7.5 (6.3-8.2) g/dL Albumin 4.1 (3.5-5.0) g/dL Urine Color (YELLOW) Urine Appearance (CLEAR) Urine pH (5-6) Ur Specific [place] (1.005-1.025) Urine Protein (Negative) Urine Ketones (NEGATIVE) Urine Blood (0-5) Anthony/ul Urine Nitrite (NEGATIVE) Urine Bilirubin (NEGATIVE) Urine Urobilinogen (0-1) mg/dL Ur Leukocyte Esterase (NEGATIVE) Urine WBC (Auto) (0-5) /HPF Urine RBC (Auto) (0-2) /HPF U Epithel Cells (Auto) (FEW) /HPF Urine Bacteria (Auto) (NEGATIVE) /HPF Urine Mucus (Auto) (NEGATIVE) /HPF Urine Culture Reflexed (NO) Urine Glucose (NEGATIVE) mg/dL Urine Opiates Level NEGATIVE (NEGATIVE) Ur Methadone NEGATIVE (NEGATIVE) Urine Barbiturates NEGATIVE (NEGATIVE) Ur Phencyclidine (PCP) NEGATIVE (NEGATIVE) Urine Amphetamine NEGATIVE (NEGATIVE) U Benzodiazepine Level NEGATIVE (NEGATIVE) Urine Cocaine NEGATIVE (NEGATIVE) Urine Marijuana (THC) NEGATIVE (NEGATIVE) 02/12/19 Range/Units 10:04 WBC (4.0-10.5) K/mm3 RBC (4.1-5.4) M/mm3 Hgb (12.0-16.0) gm/dl Hct (35-47) % MCV (78-100) fl MCH (26-32) pg MCHC (32-36) g/dl RDW (11.5-14.0) % Plt Count (150-450) K/mm3 MPV (6-9.5) fl Gran % (36.0-66.0) % Eos # (Auto) (0-0.5) Absolute Lymphs (auto) (1.0-4.6) Absolute Monos (auto) (0.0-1.3) Lymphocytes % (24.0-44.0) % Monocytes % (0.0-12.0) % Eosinophils % (0.00-5.0) % Basophils % (0.0-0.4) % Absolute Granulocytes (1.4-6.9) Basophils # (0-0.4) Sodium (137-145) mmol/L Potassium (3.5-5.1) mmol/L Chloride (98-107) mmol/L Carbon Dioxide (22-30) mmol/L Anion Gap (5-15) MEQ/L BUN (7-17) mg/dL Creatinine (0.52-1.04) mg/dL Estimated GFR ML/MIN Glucose (74-106) mg/dL Calcium (8.4-10.2) mg/dL Total Bilirubin (0.2-1.3) mg/dL AST (14-36) U/L ALT (0-35) U/L Alkaline Phosphatase (38-126) U/L Serum Total Protein (6.3-8.2) g/dL Albumin (3.5-5.0) g/dL Urine Color YELLOW (YELLOW) Urine Appearance SLIGHTLY CLOUDY (CLEAR) Urine pH 9.0 (5-6) Ur Specific [place] 1.019 (1.005-1.025) Urine Protein NEGATIVE (Negative) Urine Ketones NEGATIVE (NEGATIVE) Urine Blood SMALL (0-5) Anthony/ul Urine Nitrite NEGATIVE (NEGATIVE) Urine Bilirubin NEGATIVE (NEGATIVE) Urine Urobilinogen NEGATIVE (0-1) mg/dL Ur Leukocyte Esterase NEGATIVE (NEGATIVE) Urine WBC (Auto) 3-5 (0-5) /HPF Urine RBC (Auto) 6-10 (0-2) /HPF U Epithel Cells (Auto) FEW (FEW) /HPF Urine Bacteria (Auto) NONE (NEGATIVE) /HPF Urine Mucus (Auto) SLIGHT (NEGATIVE) /HPF Urine Culture Reflexed YES (NO) Urine Glucose NEGATIVE (NEGATIVE) mg/dL Urine Opiates Level (NEGATIVE) Ur Methadone (NEGATIVE) Urine Barbiturates (NEGATIVE) Ur Phencyclidine (PCP) (NEGATIVE) Urine Amphetamine (NEGATIVE) U Benzodiazepine Level (NEGATIVE) Urine Cocaine (NEGATIVE) Urine Marijuana (THC) (NEGATIVE) - Progress Progress: improved, re-examined Progress Note: 02/12/19 12:45 ct head-no acute intracranial abnormality. pt states she is better. not completely resolved. Counseled pt/family regarding: lab results, diagnosis, need for follow-up, rad results - Departure Departure Disposition: Home Clinical Impression: Dizziness Condition: Stable Critical Care Time: No Referrals: RAMON RAMSEY MD [Primary Care Provider] - Additional Instructions: take medications as prescribed. follow up with primary doctor for further management Prescriptions: Meclizine HCl 25 mg [Antivert 25 mg] 25 mg PO Q8H PRN #10 tablet PRN Reason: Dizziness
[2019-02-12] MEDS ORDERED: Zofran 4 MG/2 ML VIAL IV ONE (10:02)
[2019-02-12] MEDS ORDERED: Sodium Chloride 0.9% 1000 ML 1,000 ML IV STA (10:02)
[2019-02-12] MEDS ORDERED: Sodium Chloride 0.9% 1000 ML 1,000 ML ONE (10:09)
[2019-02-12] MEDS ORDERED: Zofran 4 MG/2 ML VIAL ONE (10:09)
[2019-02-12 10:31] LABS: Absolute Neutrophil Ct (ANC) 6.81 (1.4-6.9); BASOPHIL % 0.4 % (0.0-0.4); Basophil (Absolute #) 0.04 (0-0.4); Eosinophil % 1.3 % (0.00-5.0); Eosinophil (Absolute #) 0.13 (0-0.5); Hematocrit 43.8 % (35-47); Hemoglobin 14.2 gm/dl (12.0-16.0); Lymphocytes % 24.1 % (24.0-44.0); Mean Cell Volume 93.4 fl (78-100); Mean Corpuscular Hemoglobin 30.3 pg (26-32); Mean Corpuscular Hgb Concent. 32.4 g/dl (32-36); Mean Platelet Volume 9.7 fl (6-9.5); Monocyte (Absolute #) 0.56 (0.0-1.3); Monocytes % 5.6 % (0.0-12.0); Neutrophil % 68.6 % (36.0-66.0); Platelet Count 243 K/mm3 (150-450); Red Blood Count 4.69 M/mm3 (4.1-5.4); Red Cell Distribution Width 13.3 % (11.5-14.0); White Blood Count 9.9 K/mm3 (4.0-10.5)
[2019-02-12 10:44] LABS: ALBUMIN 4.1 g/dL (3.5-5.0); ALKALINE PHOSPHATASE 69 U/L (38-126); BLOOD UREA NITROGEN 12 mg/dL (7-17); CHLORIDE 108 mmol/L (98-107); Calcium 9.5 mg/dL (8.4-10.2); Carbon Dioxide 27 mmol/L (22-30); Glucose 129 mg/dL (74-106); Potassium 3.9 mmol/L (3.5-5.1); SGOT/AST 22 U/L (14-36); SGPT/ALT 25 U/L (0-35); SODIUM 143 mmol/L (137-145); Total Protein 7.5 g/dL (6.3-8.2)
[2019-02-12] MEDS ORDERED: ANTIVERT 25 MG PO ONE (11:26)
[2019-02-12] MEDS ORDERED: ANTIVERT 25 MG ONE (11:48)
[2019-02-12 11:53] LABS: Appearance SLIGHTLY CLOUDY (CLEAR); Bilirubin NEGATIVE (NEGATIVE); Blood SMALL Ery/ul (0-5); Epithelial Cells FEW /HPF (FEW); Glucose NEGATIVE (NEGATIVE); Ketones NEGATIVE (NEGATIVE); Leukocyte Esterase NEGATIVE (NEGATIVE); Mucus SLIGHT /HPF (NEGATIVE); Nitrite NEGATIVE (NEGATIVE); Protein,Urine Dip NEGATIVE (Negative); Specific Gravity 1.019 (1.005-1.025); Urobilinogen NEGATIVE mg/dL (0-1)
[2019-02-12 12:07] LABS: Amphetamine,Urine NEGATIVE (NEGATIVE); Barbiturate,Urine NEGATIVE (NEGATIVE); Benzodiazepine,Urine NEGATIVE (NEGATIVE); Cocaine,Urine NEGATIVE (NEGATIVE); Methadone,Urine NEGATIVE (NEGATIVE); Opiate,Urine NEGATIVE (NEGATIVE); PCP,Urine NEGATIVE (NEGATIVE); THC,Urine NEGATIVE (NEGATIVE)
[2019-02-12 12:46] VITALS: BP 119/77; PULSE 79
[2019-02-12 12:47] VITALS: O2SAT 97
--- NOTE | 2019-02-12 17:05 | XRAY ---
Indication: Nausea and vertigo. Multiple contiguous axial images obtained through the head without contrast. Comparison: October 10, 2015. Again normal appearing brain parenchyma, ventricles, and bony calvarium. There is mild/moderate mucosal thickening of both ethmoid, left sphenoid, and both maxillary sinuses. Mastoid air cells are clear. Impression: Paranasal sinus disease. Remaining CT head without contrast exam is normal. Comment: Preliminary interpretation was made by [facility]. No critical discrepancy. CTDI 55.94
== END 2019-02-12 12:50 | disposition home or self-care (01) ==
LOC: ED 09:32
DX: R42 Dizziness and giddiness (principal); R11.2 Nausea with vomiting, unspecified; Z79.899 Other long term (current) drug therapy
CPT/HCPCS: 36415; 70450; 80053; 80307; 81001; 85025; 87086; 93005; 96360; 96374; 99284; J2405; A9270-GY

== ENCOUNTER 2022-03-02 15:45 | Emergency (ER) | payer BC, MEDICARE ==
--- NOTE | 2022-03-02 16:18 | ERPHSYRPT ---
- History of Present Illness Source: patient Exam Limitations: no limitations Patient Subjective Stated Complaint: C/O cough, fever, chills, headache, body aches Triage Nursing Assessment: Patient ambulated back to ED. No SOB noted. She is alert and oriented. Patient is shivering, c/o chills. Skin is warm to touch but patient is currently afebrile. A forceful, non-productive cough is present. Attempted to listen to lung mccauley and patient forcefully coughs everytime she goes to exhale when deep breathing. NO abnormal lungs sounds noted. Physician History: 51 yo wf w cough/coryza/ST/fever/chills/myalgias wo N/V/D/dysuria x 2 days. 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 She smokes 1ppd. Chest pain/dyspnea denied. Timing/Duration: other (2 days) Cough Quality/Degree: dry cough Possible Cause: no prior episodes Modifying Factors: Improves With: nothing Associated Symptoms: fever, chills, cough, headache, muscle aches, nasal congestion, nasal drainage, sore throat Allergies/Adverse Reactions: venom-honey bee [bee venom (honey bee)] Allergy (Severe, Verified 03/02/22 15:54) Difficulty Breathing Iodinated Contrast Media [Iodinated Contrast Media - IV Dye] Allergy (Intermediate, Verified 03/02/22 15:54) Itching iodine Allergy (Verified 03/02/22 15:54) Difficulty Breathing sumatriptan [From Imitrex] Allergy (Verified 03/02/22 15:54) Difficulty Breathing sumatriptan succinate [From Imitrex] Allergy (Verified 03/02/22 15:54) Difficulty Breathing cocoa butter Adverse Reaction (Intermediate, Verified 03/02/22 15:54) Rash codeine [Codeine] Adverse Reaction (Verified 03/02/22 15:54) Vomiting hydrochlorothiazide Adverse Reaction (Verified 03/02/22 15:54) Blisters tramadol Adverse Reaction (Verified 03/02/22 15:54) Vomiting Home Medications: Cyclobenzaprine HCl 10 mg [Cyclobenzaprine 10 MG] 10 mg PO HSPRN PRN 10/10/15 [History] Loratadine 10 mg [Claritin 10 mg] 10 mg PO DAILY 07/27/16 [History] Naproxen [Naprosyn] 500 mg PO BID PRN 10/10/15 [History] Oxybutynin Chloride [Oxybutynin Chloride ER] 15 mg PO DAILY 10/10/15 [History] Simvastatin 40 mg PO HS 10/10/15 [History] Topiramate 100 mg [Topamax 100 MG] 50 mg PO DAILY 10/10/15 [History] Pregabalin 25 mg [Lyrica 25 MG] 25 mg PO BID 05/30/16 [History] Topiramate 100 mg [Topamax 100 MG] 100 mg PO HS 05/30/16 [History] Calcium 500 mg PO DAILY 05/17/18 [History] Escitalopram Oxalate 5 mg PO HS 05/17/18 [History] Vits W-Ca,Fe,FA(<1Mg) [] 1 tab PO DAILY 05/17/18 [History] hydrOXYzine HCL [Hydroxyzine HCl] 10 mg PO HS 05/17/18 [History] Hx Tetanus, Diphtheria Vaccination/Date Given: Yes Hx Influenza Vaccination/Date Given: No Hx Pneumococcal Vaccination/Date Given: No Immunizations Up to Date: Yes Travel Risk - International Travel Have you traveled outside of the country in past 3 weeks: No - Coronavirus Screening Are you exhibiting any of the following symptoms?: Yes Symptoms: Fever, Cough: New Onset, Headaches/Body Aches/Fatigue Close contact with a COVID-19 positive Pt in past 14-21 Days: Yes - Vaccine Status Have you recieved a Covid-19 vaccination: Yes Sole Buffer: Moderna - Vaccination Dates Date of 2cond Vaccination (if applicable): 2020 - Review of Systems Constitutional: No Symptoms, Fever, Chills Eyes: No Symptoms Ears, Nose, & Throat: No Symptoms, Nose Pain, Nose Congestion, Throat Pain Respiratory: No Symptoms, Cough Cardiac: No Symptoms Abdominal/Gastrointestinal: No Symptoms Genitourinary Symptoms: No Symptoms Musculoskeletal: No Symptoms, Myalgias Skin: No Symptoms Neurological: No Symptoms Psychological: No Symptoms Endocrine: No Symptoms Hematologic/Lymphatic: No Symptoms Immunological/Allergic: No Symptoms - Past Medical History Pertinent Past Medical History: Yes Neurological History: Migraines, Other ENT History: Cataracts Cardiac History: No Pertinent History Respiratory History: COPD, Sleep Apnea Endocrine Medical History: Other Musculoskeletal History: Degenerative Disk Disease GI Medical History: GERD History: No Pertinent History Psycho-Social History: Anxiety, Depression Female Reproductive Disorders: Uterine Cancer Other Medical History: Notes tingling into B hands, adrenal gland removed - Past Surgical History Past Surgical History: Yes Neuro Surgical History: No Pertinent History Cardiac: No Pertinent History Respiratory: No Pertinent History Gastrointestinal: Appendectomy Genitourinary: Other Musculoskeletal: Other Female Surgical History: Hysterectomy, Section, Tubal Ligation Other Surgical History: cervical fusion, adrenal gland removal, carpal tunnel surgery to both wrists - Social History Smoking Status: Current every day smoker How long have you smoked: 40 years Exposure to second hand smoke: Yes Drug Use: marijuana Patient Lives Alone: No - Nursing Vital Signs Nursing Vital Signs: Initial Vital Signs Temperature 98.6 F 03/02/22 15:54 Pulse Rate 94 H 03/02/22 15:54 Respiratory Rate 18 03/02/22 15:54 Blood Pressure 123/102 03/02/22 15:54 O2 Sat by Pulse Oximetry 96 03/02/22 15:54 Pain Scale Pain Intensity 8 WNL - Physical Exam General Appearance: no apparent distress Eye Exam: PERRL/EOMI, eyes nml inspection Ears, Nose, Throat Exam: normal ENT inspection, TMs normal, pharyngeal erythema (Mild pharyngeal erythema) Neck Exam: normal inspection, non-tender, supple, full range of motion, No meningismus, No mass, No Brudzinski, No Kernig's, No carotid bruit Respiratory Exam: airway intact, wheezing (Occ B but overall clear), No respiratory distress Cardiovascular Exam: regular rate/rhythm, normal heart sounds, normal peripheral pulses, capillary refill <2 sec, No murmur Gastrointestinal/Abdomen Exam: soft, normal bowel sounds, No tenderness Back Exam: normal inspection, normal range of motion, No CVA tenderness, No vertebral tenderness Extremity Exam: normal inspection, normal range of motion Neurologic Exam: alert, oriented x 3, cooperative, router setter II-XII nml as tested, normal mood/affect, nml cerebellar function, nml station & gait, sensation nml Skin Exam: normal color, warm, dry, No rash Lymphatic Exam: No adenopathy SpO2 Interpretation: normal SpO2: 96 O2 Delivery: Room Air - Course Nursing assessment & vital signs reviewed: Yes Lab/Rad Data: Laboratory Results 03/02/22 Range/Units 16:00 Influenza Type A Ag POSITIVE (NEGATIVE) Influenza Type B Ag NEGATIVE (NEGATIVE) RSV (PCR) NEGATIVE (Negative) SARS-CoV-2 (PCR) NEGATIVE (NEGATIVE) - Progress Counseled pt/family regarding: lab results, diagnosis, need for follow-up - Departure Departure Disposition: Home Clinical Impression: Influenza A Condition: Stable Critical Care Time: No Referrals: NEDA MULLINS NP [Primary Care Provider] - Follow up/PCP as directed Instructions: Flu, Adult (DC), Cough, Adult (DC) Additional Instructions: Rest/Fluids/Motrin/Tylenol Tamiflu twice a day for 5 days Forms: Work/School Release Form Prescriptions: Oseltamivir 75 mg [Tamiflu 75MG Capsule] 75 mg PO BID 5 Days #10 cap
[2022-03-02 16:50] LABS: INFLUENZA B NEGATIVE (NEGATIVE); RESPIRATORY SYNCTIAL VIRUS NEGATIVE (Negative); SARS-CoV-2 Xpert Express NEGATIVE (NEGATIVE)
[2022-03-02 17:05] LABS: INFLUENZA A POSITIVE (NEGATIVE)
[2022-03-02 17:23] VITALS: BP 133/91; PULSE 80
[2022-03-02 21:08] VITALS: O2SAT 96
== END 2022-03-02 17:23 | disposition home or self-care (01) ==
LOC: ED 15:45
DX: J10.1 Influenza due to other identified influenza virus with other respiratory manifestations (principal); R05.1 Acute cough; R09.81 Nasal congestion; R50.9 Fever, unspecified; M79.10 Myalgia, unspecified site; Z79.899 Other long term (current) drug therapy; Z72.0 Tobacco use
CPT/HCPCS: 0241U; 99282